=== PATIENT | female | born 1975 | race Caucasian/White ===

== ENCOUNTER → 2022-05-30 | Outpatient (CLI) | payer OTHER, SELFPAY ==
[2022-05-30 14:24] LABS: Mucous, Urine 0 SEEN /hpf (<or=2+)
[2022-05-30 15:43] LABS: Vitamin B12 279 pg/mL (211-911); Vitamin D,25 Hydroxy 29.3 ng/mL
[2022-05-30 16:39] LABS: Color, Urine Amber (Yellow); Glucose, Dipstick Normal (Normal); Ketone-Dipstick Negative (Negative); Leukocyte Esterase-Dipstick Negative /ul (Negative); Nitrite-Dipstick Positive (Negative); Occult Blood-Urine 10 /ul (Negative); Protein-Dipstick 30 mg/dl (Negative); Specific Gravity, Urine 1.025 (1.002-1.030); Urine Clarity Clear (Clear); Urine Urobilinogen 8 mg/dl (Normal)
[2022-05-30 16:42] LABS: Urine Bilirubin Dipstick 3 mg/dL (Negative)
[2022-05-30 16:53] LABS: Red Blood Cells-Urine 0-5 SEEN /hpf (0-5); Squamous Epithelial Cells - UA 0-5 SEEN /hpf (5-10)
[2022-05-30 16:54] LABS: Bacteria 1+ /hpf (None Seen); White Blood Cells 0-5 SEEN /hpf (0-5)
== END | disposition home or self-care (01) ==
PROVIDERS: PCP Internal Medicine; Referring Provider Internal Medicine; Visit Provider Internal Medicine
DX: R30.0 Dysuria (principal); Z90.3 Acquired absence of stomach [part of]
CPT/HCPCS: 36415; 81001; 82306; 82607; 87086; 87088

== ENCOUNTER → 2023-06-13 | Outpatient (CLI) | payer OTHER, SELFPAY ==
[2023-06-13 12:16] LABS: Absolute Lymphocyte Count 1.97 X10^3/uL (0.83-4.51); Absolute Neutrophil Count 4.9 X10^3/uL (2.0-7.7); Basophil# 0.03 X10^3/uL; Basophil% 0.4 % (0-1); Eosinophil# 0.07 X10^3/uL; Eosinophils% 0.9 % (0-5); Hemoglobin 14.2 g/dL (12.0-15.0); Lymphocyte # 1.97 X10^3/ul (0.83-4.51); Lymphocyte % 26.5 % (19-41); Mean Corp Hgb Conc 32.3 g/dL (32-36); Mean Platelet Vol. 11.4 fl (6.2-12.0); Monocyte# 0.42 X10^3/uL; Monocyte% 5.6 % (0-10); NRBC Flagged by Analyzer 0 % (0-5); Neutrophil # 4.93 X10^3/uL (2.7-7.7); Neutrophil % 66.3 % (47-70); Platelet Count 375 K/mm3 (150-450); RBC Distribution Width CV 12.7 % (11.6-14.6); RBC Distribution Width SD 43.8 fl (35.1-43.9); Red Blood Count 4.73 M/mm3 (4.2-5.4); White Blood Count 7.4 K/mm3 (4.4-11.0)
[2023-06-13 12:44] LABS: Vitamin B12 > 2000 pg/mL (211-911)
[2023-06-13 12:57] LABS: ALB/GLOB Ratio 0.8 RATIO (0.9-2.4); AST(SGOT) 14 U/L (15-37); Alanine Aminotransfer ALT/SGPT 24 U/L (13-56); Albumin, Serum 3.1 g/dL (3.2-5.0); Alkaline Phosphatase 73 U/L (45-117); Anion Gap 5 (5-15); BUN 16 mg/dL (7-18); BUN/Creat Ratio 16.1 RATIO (10-20); Calcium,Total 8.7 mg/dL (8.5-10.1); Chloride 110 mmol/L (98-107); Cholesterol 143 mg/dL (200); Creatinine, Serum 0.99 mg/dL (0.55-1.02); EST Glomerular Filtration Rate 63 mL/min (>60); Est Glom Filt Rate - Afr Amer 76 mL/min (>60); Globulin 3.8 g/dL (2.2-4.2); Glucose 78 mg/dL (74-106); High Density Lipoprotein 55 mg/dL; Protein, Total 6.9 g/dL (6.4-8.2); Sodium Level 140 mmol/L (136-145); Triglycerides 108 mg/dL; Very Low Density Lipoprotein 22 mg/dL (5-40)
[2023-06-13 13:34] LABS: Hemoglobin A1c 4.7 % (3.8-5.6)
[2023-06-15 11:08] LABS: QNTFERON TB Mitogen Value > 10.00 IU/mL (.); QNTFERON TB Nil Value 0.01 IU/mL (.); QNTFERON TB1+ Ag Value 0.12 IU/mL (.); QNTFERON TB2+ Ag Value 0.12 IU/mL (.); QNTIFERON TB Positive Criteria Negative (Negative)
== END | disposition home or self-care (01) ==
LOC: BIMLAB 08:39
PROVIDERS: PCP Internal Medicine; Referring Provider Internal Medicine; Visit Provider Internal Medicine
DX: Z13.6 Encounter for screening for cardiovascular disorders (principal); E66.01 Morbid (severe) obesity due to excess calories; Z68.41 Body mass index [BMI] 40.0-44.9, adult; Z90.3 Acquired absence of stomach [part of]; Z11.1 Encounter for screening for respiratory tuberculosis
CPT/HCPCS: 36415; 80053; 80061; 82306; 82607; 83036; 85025; 86480

== ENCOUNTER → 2023-10-24 | Outpatient (CLI) | payer BC, SELFPAY ==
[2023-10-24 17:40] LABS: HIV - WCH Non-Reactive (Nonreactive); Hepatitis C Antibody Non-Reactive (Nonreactive); Syphilis Antibodies Non-reactive
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
== END | disposition home or self-care (01) ==
LOC: BIMLAB 14:29
PROVIDERS: PCP Internal Medicine; Visit Provider Nurse Practitioner
DX: Z20.2 Contact with and (suspected) exposure to infections with a predominantly sexual mode of transmission (principal)
CPT/HCPCS: 36415; 86703; 86780; 86803; 87491; 87591

== ENCOUNTER → 2024-02-17 | Outpatient (CLI) | payer OTHER, SELFPAY ==
[2024-02-18 03:16] LABS: Estradiol 62.1 pg/mL; Follicle Stimulating Hormone 10.4 mIU/mL; Luteinizing Hormone 4.8 mIU/mL
[2024-02-19 04:07] LABS: PROGESTERONE <0.1 ng/mL (.)
[2024-02-22 16:09] LABS: Testosterone, % Free 2.64 % (0.50-2.80); Testosterone, Free 0.11 ng/dL (0.10-0.85); Testosterone, Total 4 ng/dL (4-50)
== END | disposition home or self-care (01) ==
LOC: BIMLAB 14:17
PROVIDERS: PCP Internal Medicine; Referring Provider Nurse Practitioner; Visit Provider Nurse Practitioner
DX: N92.6 Irregular menstruation, unspecified (principal)
CPT/HCPCS: 36415; 82670; 83001; 83002; 84144; 84402; 84403

== ENCOUNTER → 2024-02-28 | Outpatient (CLI) | payer OTHER, SELFPAY ==
--- NOTE | 2024-02-28 12:07 | BI_ITS ---
MAMMOGRAPHY - BILATERAL SCREENING REASON FOR EXAM: Female, 49 years old. Routine annual screening examination. PERTINENT HISTORY: Non-contributory. TECHNIQUE: Digital bilateral breast warren (3D mammographic acquisition) in the CC and MLO projections. 2-D mediolateral oblique (MLO) and craniocaudad (CC) views of both breasts were obtained. CAD: Full Field Digital Mammography with Computer Added Detection was performed. COMPARISON: No comparison mammograms available at this time. If any prior films become available, an addendum to this report can be generated. FINDINGS: Breast Composition: The breasts are heterogeneously dense, which may obscure small masses. There are no dominant masses or suspicious calcifications. Small benign-appearing bilateral axillary lymph nodes. No other significant abnormalities are identified. BI/SCRN MAMM (CAD)W/WARREN BILAT IMPRESSION: Negative screening mammogram. Yearly followup mammogram recommended. (A) ASSESSMENT CATEGORY: BIRADS Category 2: Benign. A letter regarding these results will be sent to the patient by the facility within 30 days. Approximately 10% of breast cancers are not detected by mammography. A normal mammogram should not delay biopsy of a clinically suspicious abnormality. [id number] Electronically Signed: Juan Luis Boothe MD at 8:58 EDT ,
--- NOTE | 2024-02-28 12:07 | US_ITS ---
STUDY: ULTRASOUND OF THE FEMALE PELVIS - COMPLETE REASON FOR EXAM: Female, 49 years old. irregular menses -- MENORRHAGIA -- BLEEDING SINCE 01/25/24 LMP: 01/25/2024 TECHNIQUE: Transabdominal and Transvaginal TECHNICAL QUALITY: Adequate. COMPARISON: None. FINDINGS: The uterus is anteverted and is in a midline position. The uterus measures 7.9 x 5.2 x 4.9 cm. Normal uterine cervix. The endometrium measures 12 mm in thickness, and is hyperechoic. There is no demonstrated endometrial mass. 2.0 cm isoechoic mass in the anterior body of uterus consistent with an intramural fibroid. Another 2 cm isoechoic mass with right-sided body of uterus consistent with an intramural fibroid. I.U.D. - The patient does not have an I.U.D. The right ovary is visualized. The right ovary measures 3.6 x 2.5 x 1.3 cm cm. There is no right ovarian cyst or ovarian mass. There is no visualized right adnexal mass or complex lesion. There is normal arterial and normal venous vascularity. The left ovary is visualized. The left ovary measures 2.5 x 2.4 x 1.4 cm cm. There is no left ovarian cyst or ovarian mass. There is no visualized left adnexal mass or complex lesion. There is normal arterial and normal venous vascularity. There is no fluid in the cul-de-sac. The pre void volume of the bladder was 55 ml. The post void volume of the bladder was ml. 1 cm echogenic focus with posterior acoustical shadowing within the bladder consistent with a bladder stone. Polycystic ovary disease: No. US/Pelvic w/ Transvaginal IMPRESSION: 1. Uterine fibroids but overall normal size of the uterus. 2. Bladder stone. Electronically Signed: Arpit Bernstein MD at 13:41 EDT ,
== END | disposition home or self-care (01) ==
PROVIDERS: PCP Nurse Practitioner; Referring Provider Nurse Practitioner; Visit Provider Nurse Practitioner
DX: Z12.31 Encounter for screening mammogram for malignant neoplasm of breast (principal); N92.6 Irregular menstruation, unspecified
CPT/HCPCS: 76830; 76856; 77063; 77067

== ENCOUNTER 2024-09-16 10:21 | Emergency (ER) | payer OTHER, SELFPAY ==
[2024-09-16 10:23] VITALS: BP 175/131; PULSE 114; RESP 20; TEMP 36.5; O2SAT 100
--- NOTE | 2024-09-16 11:29 | EDS_ITS ---
HPI History of Present Illness Chief Complaint: Nosebleed Informant: patient Narrative Narrative: 49-year-old female presenting to the emergency room with right nosebleed. Patient states she woke with this. She has held direct pressure. She has tried Afrin. She needed to put the horses in the barn and it continued to bleed so she came in. She has not had significant access before. She notes that she is not on any blood thinners that she is aware of. She denies any known direct trauma.. PFSH [facility] Medical History Lumbar disc disorder Kidney stones Polycystic ovaries Endometriosis ELIZABET (obstructive sleep apnea) Cervical disc disorder Dysfunctional sphincter of Oddi ADHD Seasonal allergies Home Medications ?Medication ?Instructions ?Recorded ?Last Taken ?Type dicyclomine 10 mg capsule 10 mg PO BID 05/30/22 Unknown History tretinoin 0.05 % topical cream 1 applic topical QHS #20 grams 07/14/23 Unknown Rx propranolol 10 mg tablet 10 mg PO BID PRN anxiety #30 tabs 10/24/23 Unknown Rx tirzepatide 5 mg/0.5 mL 5 mg (0.5 mL) subcut QWEEK #2 mL 02/20/24 Unknown Rx subcutaneous pen injector (Logan) hydrocortisone butyrate 0.1 % 1 applic topical BID PRN rash #45 06/09/24 Unknown Rx topical cream grams desvenlafaxine succinate 25 mg 25 mg PO DAILY #30 tabs 09/07/24 Unknown Rx tablet,extended release 24 hr methocarbamol 750 mg tablet 750 mg PO TID PRN spasms #60 tabs 09/07/24 Unknown Rx hydroxocobalamin 1,000 mcg/mL 1,000 mcg IM QMONTH #30 mL 09/14/24 Unknown Rx intramuscular solution Allergy/AdvReac Type Severity Reaction Status Date / Time metoclopramide (From Reglan) Allergy Severe Anaphylaxis Verified 02/17/24 13:24 venom-wasp Allergy Severe Anaphylaxis Verified 02/17/24 13:24 Family History Aunt Alcoholism Anxiety and depression CVA (cerebral vascular accident) Diabetes Hyperlipemia Hypertension Grandfather Alcoholism Aunt Anxiety and depression Diabetes Hyperlipemia Hypertension Aunt Anxiety and depression Hyperlipemia Hypertension Mother CVA (cerebral vascular accident) Lupus Hyperlipemia Hypertension Grandmother CVA (cerebral vascular accident) Heart disease Diabetes Hyperlipemia Hypertension Uncle Diabetes Father Diabetes Other Addiction to drug Surgical History History of surgical procedure History of rhinoplasty History of cholecystectomy History of hand surgery History of abdominoplasty History of D&C H/O gastric sleeve History of tonsillectomy Social History household members: spouse current occupational status: employed 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 Smoking Status: Never smoker Electronic Cigarette Use: not used alcohol intake: never substance use type: does not use what type of physical activity do you participate in: other details: soft ball do you feel safe at home: Yes ROS ROS ED Constitutional Constitutional ED: Denies chills or weight loss Eyes Eyes: Denies change in vision or diplopia ENT ENT ED: Reports other Details: Right nosebleed ; Denies ear pain, rhinorrhea or sore throat Cardiovascular Cardiovascular: Denies chest pain, orthopnea, palpitations or racing heartbeat Respiratory/Chest Respiratory/Chest: Denies cough, dyspnea or orthopnea Gastrointestinal Gastrointestinal: Denies abdominal pain, diarrhea, nausea or vomiting Genitourinary Genitourinary ED: Denies dysuria, hematuria or urinary frequency Musculoskeletal Musculoskeletal: Denies arthralgias or myalgias Integumentary Denies abscess or rash Neurologic Neurologic: Denies headache(s) or weakness Psychiatric Psychiatric: Denies anxiety, depression, suicidal ideation or suicidal thoughts Endocrine Endocrinology: Denies polydipsia, polyphagia or polyuria Allergic/Immunologic Allergic/Immunologic ED: Denies mouth swelling, tongue swelling or urticaria EXAM Physical Exam Const Vital Signs: 09/16/24 10:23 09/16/24 11:53 Temperature 97.7 F L 98.4 F Temperature Source Temporal Pulse Rate 114 H 64 Respiratory Rate 20 H 18 Blood Pressure 175/131 H 139/45 H Blood Pressure Mean 145 76 Pulse Ox 100 99 Oxygen Delivery Method Room Air Positive well nourished and well developed General Appearance ED: well developed HEENT Reports normocephalic, head/scalp atraumatic and moist mucous membranes HEENT Narrative: There is blood in the posterior oropharynx. There is blood coming from the right naris. There is a obvious clot in the right naris. Clots were removed by blowing. The anterior plexus appears without any active bleeding but there does not appear bleeding occurring posterior to the. He was dark red nonpulsatile Eyes PERRL and EOMs intact bilaterally Neck no lymphadenopathy, supple and no JVD Resp normal respiratory effort and clear to auscultation bilaterally Cardio regular rate, regular rhythm and no murmurs GI normal to inspection, nondistended, normoactive bowel sounds and non-tender Palpation: soft Back/Spine no CVA tenderness and normal ROM Extremity normal to inspection General Extremety ED: Negative for edema General Extremity: Negative for edema Neuro oriented x3 and CN's II-XII intact bilaterally Sensorium / Orientation: alert Motor Exam: strength 5/5 throughout Psych mental status grossly normal Mood & Affect: Negative for depressed or tearful Skin no rashes or lesions noted and no wounds MDM MDM MDM Narrative Medical decision making narrative: Differential diagnosis includes but not limited to posterior epistaxis anterior epistaxis trauma blood clotting disorders hypertension Patient's blood pressure has come down significantly. I believe the triage blood pressure was not accurate. A anterior posterior Rhino Rocket was placed without difficulty and inflated with air. This is allowed resolution of the bleeding at this time. She was observed. She is going to follow-up with ENT. Would recommend packing be removed in 3 days. Return if worsening or concerns she is comfortable with this plan History & Record Review Discussion w/independent historian: Patient Discharge Plan Triage Chief Complaint: Nosebleed ED Provider: You Andino Dx/Rx/DC Orders Clinical Impression: Acute posterior epistaxis Instructions: ED Epistaxis (Adult) Prescriptions: No Action dicyclomine 10 mg capsule 10 mg PO BID propranolol 10 mg tablet 10 mg PO BID PRN (Reason: anxiety) Qty: 30 0RF tretinoin 0.05 % cream 1 applic topical QHS Qty: 20 0RF Mounjaro 5 mg/0.5 mL pen injector 5 mg subcut QWEEK Qty: 2 1RF hydrocortisone butyrate 0.1 % cream 1 applic topical BID PRN (Reason: rash) Qty: 45 1RF desvenlafaxine succinate 25 mg tablet extended release 24 hr 25 mg PO DAILY Qty: 30 0RF methocarbamol 750 mg tablet 750 mg PO TID PRN (Reason: spasms) Qty: 60 0RF hydroxocobalamin 1,000 mcg/mL solution 1,000 mcg IM QMONTH Qty: 30 2RF Primary Care Provider: Tawnya Guevara Referrals: Stepan Henderson MD [Med Staff - Active Staff] - (in 3 days for packing removal and repeat examination) Tawnya Guevara, DIRECTOR NURSING SERVICE-C [Primary Care Provider] - Print Language: Botswanan Disposition Disposition: Home, Self Care Discharge Date/Time: 09/16/24 11:55
[2024-09-16 11:53] VITALS: BP 139/45; PULSE 64; RESP 18; TEMP 36.9; O2SAT 99
== END 2024-09-16 11:55 | disposition home or self-care (01) ==
PROVIDERS: Emergency Provider Emergency Medicine; PCP Nurse Practitioner; Visit Provider Emergency Medicine
DX: R04.0 Epistaxis (principal); F90.9 Attention-deficit hyperactivity disorder, unspecified type; Z79.899 Other long term (current) drug therapy; Z90.49 Acquired absence of other specified parts of digestive tract
CPT/HCPCS: 30901; 30905; 99282

== ENCOUNTER → 2024-11-23 | Outpatient (CLI) | payer OTHER, SELFPAY ==
[2024-11-23 13:43] LABS: Absolute Lymphocyte Count 1.82 X10^3/uL (0.83-4.51); Absolute Neutrophil Count 5.1 X10^3/uL (2.0-7.7); Basophil# 0.03 X10^3/uL; Basophil% 0.4 % (0-1); Eosinophil# 0.06 X10^3/uL; Eosinophils% 0.8 % (0-5); Hematocrit 37.6 % (37-47); Hemoglobin 12.2 g/dL (12.0-15.0); Lymphocyte # 1.82 X10^3/ul (0.83-4.51); Lymphocyte % 24.3 % (19-41); Mean Corp Hgb Conc 32.4 g/dL (32-36); Mean Corpuscular Hgb 28.4 pg (27.0-32.0); Mean Corpuscular Volume 87.4 fL (81-99); Mean Platelet Vol. 11.3 fl (6.2-12.0); Monocyte# 0.48 X10^3/uL; Monocyte% 6.4 % (0-10); NRBC Flagged by Analyzer 0 % (0-5); Neutrophil # 5.08 X10^3/uL (2.7-7.7); Neutrophil % 67.8 % (47-70); Platelet Count 359 K/mm3 (150-450); RBC Distribution Width CV 12.5 % (11.6-14.6); RBC Distribution Width SD 39.8 fl (35.1-43.9); White Blood Count 7.5 K/mm3 (4.4-11.0)
[2024-11-23 22:55] LABS: ALB/GLOB Ratio 1.3 RATIO (0.9-2.4); AST(SGOT) 25 U/L (<=31); Alanine Aminotransfer ALT/SGPT 18 U/L (<=34); Albumin, Serum 3.8 g/dL (3.5-5.0); Alkaline Phosphatase 64 U/L (35-104); Anion Gap 11 (5-15); BUN 17 mg/dL (4-19); BUN/Creat Ratio 16.6 RATIO (10-20); Calcium,Total 8.8 mg/dL (7.6-11.0); Carbon Dioxide 22.1 mmol/L (21.0-32.0); Chloride 106 mmol/L (98-108); Creatinine, Serum 1.03 mg/dL (0.70-1.20); EST Glomerular Filtration Rate 66 (>60); Follicle Stimulating Hormone 5.1 mIU/mL; Globulin 2.8 g/dL (2.2-4.2); Glucose 67 mg/dL (70-99); Luteinizing Hormone 4.7 mIU/mL; Potassium 4.1 mmol/L (3.3-5.1); Protein, Total 6.6 g/dL (5.9-8.4); Sodium Level 139 mmol/L (133-145); Total Bilirubin 1.11 mg/dL (0.00-1.30); Vitamin B12 888 pg/mL (180-914); Vitamin D,25 Hydroxy 51.5 ng/mL (30-100)
[2024-11-23 23:50] LABS: Cholesterol 180 mg/dL (<=200); High Density Lipoprotein 69 mg/dL; Low Density Lipoprotein Calc. 94 mg/dL; Triglycerides 85 mg/dL; Very Low Density Lipoprotein 17 mg/dL (5-40); cholesterol:hdl ratio screen 2.62
[2024-11-24 20:50] LABS: Hemoglobin A1c 4.8 % (<=5.6)
[2024-11-25 08:09] LABS: PROGESTERONE 0.2 ng/mL (.)
== END | disposition home or self-care (01) ==
LOC: VSLAB 08:39
PROVIDERS: PCP Nurse Practitioner Family
DX: R53.83 Other fatigue (principal); Z13.1 Encounter for screening for diabetes mellitus; Z13.220 Encounter for screening for lipoid disorders
CPT/HCPCS: 36415; 80053; 80061; 82306; 82607; 82670; 82672; 83001; 83002; 83036; 84144; 84402; 84403; 84443; 85025

== ENCOUNTER → 2025-05-07 | Outpatient (CLI) | payer OTHER, SELFPAY ==
[2025-05-13 18:08] LABS: HPV APTIMA, High Risk Negative (Negative)
== END | disposition home or self-care (01) ==
LOC: LABSPEC 16:35
PROVIDERS: PCP Nurse Practitioner Family; Referring Provider Nurse Practitioner Family; Visit Provider Nurse Practitioner Family
DX: Z12.4 Encounter for screening for malignant neoplasm of cervix (principal)
CPT/HCPCS: 87624; 88175; G0145